=== PATIENT | male | born 1935 | race Caucasian/White ===

== ENCOUNTER 2016-09-11 10:53 | Day surgery (SDC) | payer MEDICARE ==
[~2016-09-11] VITALS: Ht 182.9 cm; Wt 95.5 kg
--- NOTE | ~2016-09-11 | OR ---
PATIENT'S NAME: MYRON, CHELSY Ho [facility] AGE: 81 Y [address] ROOM: [place] [id number] LOCATION: [facility] [place] ADMIT DATE: 09/11/2016 OR/Procedure Report DISCHARGE DATE: FAMILY PHYSICIAN: Bridget Braswell MD ATTENDING PHYSICIAN: Caitie Singh SURGEON: Caitie Singh MD SASH REPAIRER: DATE OF PROCEDURE: 09/11/2016 PREOPERATIVE DIAGNOSIS: Benign prostatic hypertrophy with lower urinary tract symptoms. POSTOPERATIVE DIAGNOSIS: Benign prostatic hypertrophy with lower urinary tract symptoms. PROCEDURES PERFORMED: 1. Cystoscopy. 2. Transurethral resection of prostate. ANESTHESIA: Spinal. COMPLICATIONS: None. INDICATION FOR PROCEDURE: The patient is an 81-year-old male with obstructive voiding symptoms. The patient is status post UroLift, but continued to have significant obstructive voiding symptoms. The patient is unable to tolerate Flomax daily and takes it every other day secondary to hypotensive issues. After discussion with the patient, I recommend proceeding with TURP. DETAILS OF PROCEDURE: After informed consent was obtained, the patient was taken to the operating room. A spinal anesthetic was applied. He was placed in the dorsal lithotomy position. The groin area was prepped and draped in normal sterile fashion. The patient has known hypospadias and this was dilated to 28-Israeli with Maida sounds. The resectoscope sheath was then introduced into the urethra and bladder. Next, the resectoscope and a 30- degree lens was introduced. Resection was begun at the bladder neck on the floor of the prostate to the verumontanum. I then resected the lateral tissue. The patient had extensive arterial bleeding throughout the resection and required a fair amount of cauterization to control. After the lateral lobes were resected, I did resect the anterior tissue. The bladder was empty of chips and further resection was completed. I then switched over to the button loop and used this for hemostasis. During the resection, two of his UroLift clips were identified and removed. At the end of the procedure, the patient had excellent voiding channel with open prostatic urethra. A 24- Israeli, three-way Hyman catheter was placed on light traction. The balloon PATIENT'S NAME: CHELSY SANCHES [facility] AGE: 81 Y [address] ROOM: [place] [id number] LOCATION: [facility] [place] ADMIT DATE: 09/11/2016 OR/Procedure Report DISCHARGE DATE: FAMILY PHYSICIAN: Bridget Braswell MD ATTENDING PHYSICIAN: Caitie Singh was filled to 50 mL. The patient tolerated this procedure well and was transferred to the recovery room in good condition. MD TERESA NG/alex /[id number] d: 09/11/16 1532 t: 09/30/16 1157, OPERATIVE SUMMARY
[~2016-09-11 10:53] MED LIST: AVODART0.5 MG PO; B-12; FLOMAX0.4 MG PO; FLORINEF0.1 MG PO; LEVAQUIN 250 M250 MG PO; LEVOTHROID (SY25 MCG PO; LEXAPRO20 MG PO; NEURONTIN300 MG PO; OXYGEN M-15; POTASSIUM99 MG PO; PREVALITE (=4 GM/PKT PO; PRILOSEC20 MG PO; REQUIP0.25 MG PO; SLEEP AID25 M1 PO; SLEEP-AID25 MG PO; THERA-VITE W/ B1 TAB PO; TYLENOL/COD#31 TAB PO; ZOCOR40 MG PO
[2016-09-11 11:34] LABS: BASOPHIL % 0.8 %; EOSINOPHIL # 0.1 K/uL (0.0-0.5); HEMATOCRIT 34.4 % (33.0-50.0); HEMOGLOBIN 11.4 g/dL (11.0-16.0); MCH 32.1 pg (27.0-34.0); MCHC 33.1 gm/dL (32.0-36.5); MCV 96.9 fl (83.0-98.0); MONOCYTE # 0.2 K/uL (0.0-1.0); MONOCYTE % 6.4 %; MPV 9.1 fl (9.4-12.4); NEUTROPHIL # (ANC) 1.3 K/uL (1.4-9.0); NEUTROPHIL % 52.8 %; NRBC % 0 /100WBC (0-0.00); PLATELET COUNT 107 K/uL (150-450); RBC 3.55 M/uL (3.50-5.50); RDW-CV 14.2 % (11.9-14.6); WBC 2.5 K/uL (4.0-11.0)
[2016-09-11 11:54] LABS: ALBUMIN 3.7 gm/dL (3.5-5.0); ANION GAP 14.3 (10.0-19.0); CALCIUM 9.2 mg/dL (8.5-10.5); POTASSIUM 4.3 mMol/L (3.7-5.1); TOTAL BILIRUBIN 0.3 mg/dL (0.0-1.5); TOTAL PROTEIN 6.6 g/dL (6.0-8.4)
--- NOTE | 2016-09-11 19:24 | NUR ---
PATIENT ALERT AND ORIENTED X3. VSS, ON BEDREST, TOLERATING LIQUIDS WELL, WILL DECIDE LATER WHAT FOOD HE WANTS TO EAT. STALLINGS TO CBI AT SLOW RATE, URINE CLEAR WITH SLIGHT PINK. HOME MEDS SENT TO BE IDENTIFIED PER FAMILY THEY WERE TOLD BY "PRE SURGERY" THAT THEY COULD BRING THEIR MEDS IN AND TAKE THEM, EXPLAINED SITUATION TO THEM, MEDS SENT PHARMACY TO BE IDENTIFIED ORDER RECIEVED FROM . NO PRNS GIVEN. PATIENT IS PLEASANT AND COOPERATIVE WITH CARES. DENIES NEEDS AT THIS TIME. FAMILY AT BEDSIDE. PLAN HOME TOMORROW.
--- NOTE | 2016-09-12 05:43 | NUR ---
Pt. alert and oriented. VSS. RA. CBI at slow rate. L) IV in arm - saline locked. Tolerating regular diet well. Denies pain. Bedrest. Took resteril with relief. Slept all night. Cooperative and pleasant with cares. Possible d/c today.
[2016-09-12] MEDS ORDERED: LEVAQUIN 250 M250 MG PO (14:17)
[2016-09-12] MEDS ORDERED: NEOSPORIN1 PKT TOP (14:18)
[2016-09-12] MEDS ORDERED: TYLENOL WITH C1 EACH PO (14:22)
== END 2016-09-12 15:33 | disposition disaster alternative care site (69) ==
LOC: GMSU 10:53 → GPOC 10:53 → GMSU 12:47 → GPOC 09-12 15:33
PROVIDERS: Urology
PROC: 0VT08ZZ Resection of Prostate, Via Natural or Artificial Opening Endoscopic (ICD-10-PCS; principal; 2016-09-11)
DX: N40.1 Benign prostatic hyperplasia with lower urinary tract symptoms (principal); N13.8 Other obstructive and reflux uropathy; I48.91 Unspecified atrial fibrillation; E78.5 Hyperlipidemia, unspecified; I25.10 Atherosclerotic heart disease of native coronary artery without angina pectoris; K21.9 Gastro-esophageal reflux disease without esophagitis; M19.90 Unspecified osteoarthritis, unspecified site; G47.30 Sleep apnea, unspecified; G25.81 Restless legs syndrome; Z79.899 Other long term (current) drug therapy; Z87.891 Personal history of nicotine dependence; Z98.890 Other specified postprocedural states
CPT/HCPCS: J1956; J2001; J7030